=== PATIENT | male | born 1980 | race Caucasian/White ===

== ENCOUNTER 2017-04-08 08:52 | Emergency (ER) | payer SELFPAY ==
[~2017-04-08] VITALS: Ht 185.4 cm; Wt 90.0 kg
[~2017-04-08 08:52] MED LIST: BACTRIM DS1 TAB PO; CEPHALEXIN500 MG OR; DOXYCYCL HYC100 MG PO; FLOMAX0.4 M1 PO; LORTAB 5 OR; LORTAB 7.5 OR; LORTAB5 PO; PROMETHAZINE25 MG OR; ZOFRAN ODT8 MG PO
[2017-04-08] MEDS ORDERED: MOTRIN800 MG PO (09:12)
[2017-04-08 10:00] VITALS: BP 145/74
== END 2017-04-08 10:00 | disposition home or self-care (01) | DRG 605 ==
LOC: ED 08:52
DX: S90.32XA Contusion of left foot, initial encounter (principal); M25.571 Pain in right ankle and joints of right foot; W22.03XA Walked into furniture, initial encounter; Y93.01 Activity, walking, marching and hiking; Y92.009 Unspecified place in unspecified non-institutional (private) residence as the place of occurrence of the external cause; R22.41 Localized swelling, mass and lump, right lower limb

== ENCOUNTER 2024-02-14 12:47 | Emergency (ER) | payer SELFPAY ==
[~2024-02-14] VITALS: Ht 185.4 cm; Wt 79.3 kg
[2024-02-14] VITALS (7 sets, daily range): BP systolic 108–138; BP diastolic 78–104
[~2024-02-14 12:47] MED LIST changes: +MOTRIN800 MG PO
[2024-02-14] MEDS ORDERED: SODIUM CHLORIDE 0.9% 1,000 ML IV ONE (13:30)
[2024-02-14 13:50] LABS: BASO% 0.4 % (0-3); EOS% 0.3 % (0-8); HEMOGLOBIN 14.5 g/dl (14.0-18.0); IMMATURE GRANULOCYTES 0.3 % (0.0-5.0); LYMPH% 24.1 % (15-41); MEAN CELL VOLUME 95.7 fL CALC (80.0-100.0); MEAN CORPUSCULAR HGB 30.9 pG CALC (26.0-32.0); MEAN CORPUSCULAR HGB CONC 32.2 g/dL CAL (32.0-36.0); MONO% 8.5 % (2-13); NEUT# 5.08 thou/uL (1.82-7.42); NEUT% 66.4 % (42-76); RED BLOOD COUNT 4.7 mill/uL (4.70-6.10); RED CELL DISTRI WIDTH 14.3 % (11.5-15.5)
[2024-02-14 14:09] LABS: ALKALINE PHOSPHATASE 95 u/l (38-126); BUN 15 mg/dL (9-20); BUN/CREATININE RATIO 17 (12-20 (CALC)); CHLORIDE 113 mmol/l (95-108); CREATININE 0.9 mg/dL (0.7-1.3); ESTIMATED GFR 108 ML/MIN (>=90 (CALC)); LIPASE 28 u/l (23-300); POTASSIUM 3.7 mmol/l (3.5-5.1); SGOT/AST 21 u/l (17-59); SODIUM 141 mmol/l (137-146); TOTAL PROTEIN 7.8 g/dL (6.3-8.2)
[2024-02-14 14:18] LABS: ALBUMIN 4.5 g/dL (3.2-5.0); ANION GAP 9 (6-22 (CALC)); BILIRUBIN, TOTAL 0.7 mg/dL (0.2-1.3); CARBON DIOXIDE 23 mmol/l (22-30)
== END 2024-02-14 16:19 | disposition home or self-care (01) | DRG 605 ==
LOC: ED 12:47
PROVIDERS: Family Medicine
DX: S20.211A Contusion of right front wall of thorax, initial encounter (principal); V86.55XA Driver of 3- or 4- wheeled all-terrain vehicle (ATV) injured in nontraffic accident, initial encounter
CPT/HCPCS: Q9967

== ENCOUNTER 2024-04-28 14:12 | Emergency (ER) | payer SELFPAY ==
[2024-04-28] VITALS (14 sets, daily range): BP systolic 124–160; BP diastolic 73–102
[~2024-04-28] VITALS: Ht 185.4 cm; Wt 79.3 kg
[2024-04-28] MEDS ORDERED: ONDANSETRON HCl 4 MG/2 ML SDV IV STA (14:53)
[2024-04-28] MEDS ORDERED: SODIUM CHLORIDE 0.9% 1,000 ML IV STA ×2 (14:53→16:47)
[2024-04-28] MEDS ORDERED: KETOROLAC TROMETHAMINE 30 MG/ML SDV IV STA (14:53)
[2024-04-28] MEDS ORDERED: MORPHINE SULFATE 4 MG/ML VIAL IV ONE (14:55)
[2024-04-28 15:16] LABS: BASO% 0.3 % (0-3); EOS% 0.8 % (0-8); HEMATOCRIT 43.2 % (39.0-50.0); IMMATURE GRANULOCYTES 0.5 % (0.0-5.0); LYMPH% 12.7 % (15-41); MEAN CELL VOLUME 93.7 fL CALC (80.0-100.0); MEAN CORPUSCULAR HGB 30.4 pG CALC (26.0-32.0); MEAN CORPUSCULAR HGB CONC 32.4 g/dL CAL (32.0-36.0); MONO% 8.2 % (2-13); NEUT# 13.25 thou/uL (1.82-7.42); NEUT% 77.5 % (42-76); RED BLOOD COUNT 4.61 mill/uL (4.70-6.10); RED CELL DISTRI WIDTH 14.4 % (11.5-15.5)
[2024-04-28 15:33] LABS: ALBUMIN 3.8 g/dL (3.2-5.0); BILIRUBIN, TOTAL 0.5 mg/dL (0.2-1.3); CREATININE 1.4 mg/dL (0.7-1.3); POTASSIUM 4.4 mmol/l (3.5-5.1); TOTAL PROTEIN 6.9 g/dL (6.3-8.2)
[2024-04-28 17:54] LABS: URINE BILIRUBIN - DIPSTICK Negative (NEGATIVE); URINE BLOOD DIPSTICK Moderate (NEGATIVE); URINE GLUCOSE - DIPSTICK Negative (NEGATIVE); URINE KETONE 15 mg/dL (NEGATIVE); URINE LEUK ESTERASE Negative (NEGATIVE); URINE NITRITE - DIPSTICK Negative (Negative); URINE PH 5.5 (4.5-8.0); URINE PROTEIN - DIPSTICK Negative (NEG-TRACE); URINE SPECIFIC GRAVITY 1.015; URINE UROBILINOGEN - DIPSTICK 0.2 E.U./dL (0.2)
[2024-04-28 17:56] LABS: URINE COLOR Yellow
[2024-04-28 18:07] LABS: URINE WBC 0-2 WBC/hpf (0-5)
[2024-04-28 18:08] LABS: URINE YEAST FEW hpf
[2024-04-28] MEDS ORDERED: TAMSULOSIN0.4 MG PO (18:14)
[2024-04-28] MEDS ORDERED: TORADOL PO (18:14)
[2024-04-28] MEDS ORDERED: LORTAB 7.57.5 MG PO (18:14)
[2024-04-28] MEDS ORDERED: TAMSULOSIN HCL 0.4 MG CAP PO ONE (18:15)
[2024-04-28] MEDS ORDERED: HYDROcodone 7.5 MG/Acetaminophen 325 MG/COMBO PO ONE (18:15)
== END 2024-04-28 18:39 | disposition home or self-care (01) | DRG 694 ==
LOC: ED 14:12
PROVIDERS: Nurse Practitioner
DX: N20.0 Calculus of kidney (principal); Z87.442 Personal history of urinary calculi
CPT/HCPCS: J2405